=== PATIENT | female | born 1955 | race Caucasian/White ===

== ENCOUNTER 2019-05-04 18:37 | Emergency (ER) | payer SELFPAY ==
[~2019-05-04] VITALS: Ht 167.6 cm; Wt 54.4 kg
[2019-05-04 19:06] VITALS: BP 148/92
--- NOTE | 2019-05-04 19:18 | Emergency Room Report ---
History of Present Illness General Chief Complaint: Skin Rash/Abscess Source: Patient Present Illness HPI This patient left prior to evaluation by medical provider. Allergies: Coded Allergies: PENICILLINS (Verified Allergy, Unknown, 05/04/19) Nursing Documentation-[facility] Past Medical History: No Stated History Physical Exam Vital Signs Date Time Temp Pulse Resp B/P (MAP) Pulse Ox O2 Delivery O2 Flow Rate FiO2 05/04/19 18:50 98.6 85 18 150/91 (110) 97 Room Air Medical Decision Making PA Attestation Dr. Moscoso is my supervising Physician whom patient management has been discussed with. ER Course This patient left prior to evaluation by medical provider. Last Vital Signs Date Time Temp Pulse Resp B/P (MAP) Pulse Ox O2 Delivery O2 Flow Rate FiO2 05/04/19 19:06 98.6 78 16 148/92 98 Room Air Disposition: LEFT W/OUT BEING SEEN Condition: Unknown Munira Corbett May 04, 2019 19:18
== END 2019-05-04 19:18 | disposition left against medical advice (07) ==
LOC: EMR 19:16
DX: R21 Rash and other nonspecific skin eruption (principal); Z88.0 Allergy status to penicillin; Z53.21 Procedure and treatment not carried out due to patient leaving prior to being seen by health care provider